=== PATIENT | male | born 1990 | race Caucasian/White ===

== ENCOUNTER 2017-04-14 02:01 | Emergency (ER) | payer OTHER ==
[~2017-04-14] VITALS: Ht 188 cm; Wt 81.6 kg
--- NOTE | 2017-04-14 02:40 | NUR ---
PT PRESENTED TO THE ER WITH A C/O SI WITH A PLAN TO WALK INTO TRAFFIC. PT STATED THAT HE IS ALSO HEARING VOICES. URINE SAMPLE OBTAINED AND BLOOD DRAWN, SENT TO LAB.
[2017-04-14 02:44] LABS: BASOPHILS # (AUTO) 0.1 /CMM (0.0-0.2); BASOPHILS % (AUTO) 0.9 % (0.0-2.0); EOSINOPHILS # (AUTO) 0.4 /CMM (0.0-0.7); EOSINOPHILS % (AUTO) 7.1 % (0.0-6.0); HEMATOCRIT 44 % (39-51); HEMOGLOBIN 14.4 g/dL (13.5-17.5); LYMPHOCYTES # (AUTO) 1.7 /CMM (0.8-4.8); LYMPHOCYTES % (AUTO) 29.1 % (20.0-44.0); MEAN CORPUSCULAR HEMOGLOBIN 27 PG (26.0-33.0); MEAN CORPUSCULAR HGB CONC 33 g/dl (31.0-36.0); MEAN CORPUSCULAR VOLUME 81 fL (80-96); MONOCYTES # (AUTO) 0.8 /CMM (0.1-1.30); MONOCYTES % (AUTO) 13.5 % (2.0-12.0); NEUTROPHILS # (AUTO) 2.9 /CMM (1.8-8.9); NEUTROPHILS % (AUTO) 49.4 % (43.0-81.0); PLATELET COUNT (AUTO) 284 /CMM (150-450); RDW COEFFICIENT OF VARIATION 13.9 (11.5-15.0); RED BLOOD CELL COUNT(AUTO) 5.38 MIL/uL (4.5-6.0); WHITE BLOOD COUNT (AUTO) 5.9 K/uL (4.3-11.0)
[2017-04-14 02:47] LABS: APPEARANCE,URINE CLEAR (CLEAR); BILIRUBIN,URINE 1+ (NEGATIVE); BLOOD, URINE NEGATIVE Ery/uL (NEGATIVE); COLOR,URINE YELLOW (YELLOW); KETONES,URINE NEGATIVE (NEGATIVE); LEUKOCYTE ESTERASE ,URINE TRACE (NEGATIVE); NITRITE, URINE NEGATIVE (NEGATIVE); PROTEIN,URINE TRACE mg/dl (NEGATIVE); UGLUCOSE NEGATIVE (NEGATIVE); UROBILINOGEN,URINE 0.2 EU/dL (0.2)
--- NOTE | 2017-04-14 02:50 | NUR ---
PT SEEN BY Anali LATIF LCSW.
[2017-04-14 02:53] LABS: RBC,URINE 0-2 /HPF (0-2)
[2017-04-14 02:54] LABS: BACTERIA,URINE None seen /HPF (None Seen); MUCUS,URINE Few /LPF (None Seen); SQUAMOUS EPITHELIAL CELL,UR Few /HPF (None Seen); WBC,URINE 21-50 /HPF (0-3)
[2017-04-14 02:55] LABS: CALCIUM, SERUM 9.4 mg/dL (8.5-10.1); CARBON DIOXIDE 31 mmol/L (21-32); CHLORIDE 103 mmol/L (98-107); CREATININE 1.3 mg/dL (0.6-1.3); GLUCOSE 80 mg/dL (74-106); POTASSIUM 3.6 mmol/L (3.5-5.1); SODIUM SERUM 139 mmol/L (136-145); UREA NITROGEN, BLOOD 19 mg/dL (7-18)
[2017-04-14 03:00] LABS: ALANINE AMINOTRANSFERASE 28 U/L (12-78); ALBUMIN 4.4 g/dL (3.4-5.0); ALKALINE PHOSPHATASE 45 U/L (46-116); ASPARTATE AMINOTRANSFERASE 33 U/L (15-37); BILIRUBIN,DIRECT 0.1 mg/dL (0.0-0.2); BILIRUBIN,TOTAL 0.7 mg/dL (0.2-1.0); TOTAL PROTEIN, SERUM 8.5 g/dL (6.4-8.2)
[2017-04-14 03:01] LABS: ACETAMINOPHEN 0 ug/ml (10-30); ALCOHOL, BLOOD < 3 mg/dL (0-0); SALICYLATE 1.3 mg/dL (2.8-20.0)
--- NOTE | 2017-04-14 03:15 | NUR ---
PT APPEARS TO BE SLEEPING SOUNDLY WITH NO S/S OF PAIN OR DISTRESS.
--- NOTE | 2017-04-14 04:24 | NUR ---
Pt accepted at [facility] by Dr Lama. # for report [phone]
--- NOTE | 2017-04-14 04:25 | NUR ---
PT APPEARS TO BE RESTING COMFORTABLY WITH NO S/S OF DISTRESS. RESP EVEN AND UNLABORED. WILL CONTINUE TO MONITOR THE PT.
--- NOTE | 2017-04-14 04:27 | NUR ---
CALLING REPORT TO CUCO BASS AT [facility].
--- NOTE | 2017-04-14 04:45 | NUR ---
Patient discharged to THE LOBBY TO WAIT FOR TAXI TO [facility] [place] in stable condition. Written and verbal after care instructions given. Patient verbalizes understanding of instruction. PT AMBULATED TO THE LOBBY WITH A STEADY GAIT. NO S/S OF DISTRESS NOTED. Rivas RUIZ RN/CHG ESCORTED PT TO THE LOBBY TO WAIT FOR TAXI AND TAXI VOUCHER WAS GIVEN TO THE WEAVING SUPERVISOR. PT IS AWARE THAT [facility] IS WAITING FOR HIM. VSS.
[2017-04-14 04:47] VITALS: BP 138/90
== END 2017-04-14 04:47 | disposition home or self-care (01) ==
LOC: ER 02:02
DX: R45.851 Suicidal ideations (principal); F32.9 Major depressive disorder, single episode, unspecified; F41.9 Anxiety disorder, unspecified; F43.10 Post-traumatic stress disorder, unspecified; F22 Delusional disorders; F25.9 Schizoaffective disorder, unspecified; J45.909 Unspecified asthma, uncomplicated; R82.99 Other abnormal findings in urine; Z91.013 Allergy to seafood
CPT/HCPCS: 36415; 80048; 80076; 80305; 80329; 81001; 85025; 87086; 99284; A4606; G0480 ×2; Z7610; 81000-TC; G6039-TC

== ENCOUNTER 2017-04-23 01:55 | Emergency (ER) | payer OTHER ==
[~2017-04-23] VITALS: Ht 182.9 cm; Wt 81.6 kg
--- NOTE | 2017-04-23 02:18 | NUR ---
PT BIBSELF, AMBULATORY TO ER BED 12 PT STATES HE WANTS TO SMASH HIS HEAD TO MAKE THE VOICES STOP AND TO KILL HIMSELF, PT DENIES HI. PT STATES NO PLANS AT THIS TIME. PT AOX4 RR EVEN AND UNLABORED. NO SOB NOTED. NAD NOTED. NO NVD AT THIS TIME. PT NOT DIAPHORETIC. PT PLACED ON MONITOR WAITING FOR MD VELÁZQUEZ. PT CALM AND COOPERATIVE AT THIS TIME.
--- NOTE | 2017-04-23 02:19 | NUR ---
URINE COLLECTED. CALLED LAB FOR WINE FERMENTER.
--- NOTE | 2017-04-23 02:30 | NUR ---
DR. PARDO AT BEDSIDE FOR EVAL.
[2017-04-23] MEDS ORDERED: OLANZAPINE 5 MG/TAB.RAPDIS PO ONE (03:00)
[2017-04-23] MEDS ORDERED: QUETIAPINE FUMARATE 100 MG TABLET PO SCH (03:00)
[2017-04-23] MEDS ORDERED: OLANZAPINE 5 MG/TAB.RAPDIS ONE (03:03)
[2017-04-23] MEDS ORDERED: QUETIAPINE FUMARATE 100 MG TABLET ONE (03:07)
--- NOTE | 2017-04-23 03:11 | NUR ---
LAB AT BEDSIDE FOR BLOOD DRAW.
--- NOTE | 2017-04-23 03:14 | NUR ---
RECEIVED MEDICATION VIA RN DREW MAYO
[2017-04-23 03:26] LABS: BILIRUBIN,URINE NEGATIVE (NEGATIVE); BLOOD, URINE NEGATIVE Ery/uL (NEGATIVE); KETONES,URINE TRACE (NEGATIVE); LEUKOCYTE ESTERASE ,URINE NEGATIVE (NEGATIVE); NITRITE, URINE NEGATIVE (NEGATIVE); PH,URINE 5.5 (5.0-8.0); PROTEIN,URINE TRACE mg/dl (NEGATIVE); UGLUCOSE NEGATIVE (NEGATIVE); UROBILINOGEN,URINE 0.2 EU/dL (0.2)
[2017-04-23 03:29] LABS: APPEARANCE,URINE HAZY (CLEAR); COLOR,URINE DARK YELLOW (YELLOW)
[2017-04-23 03:35] LABS: CALCIUM, SERUM 9.4 mg/dL (8.5-10.1); CARBON DIOXIDE 32 mmol/L (21-32); CHLORIDE 101 mmol/L (98-107); GLUCOSE 85 mg/dL (74-106); POTASSIUM 3.7 mmol/L (3.5-5.1); SODIUM SERUM 138 mmol/L (136-145); UREA NITROGEN, BLOOD 16 mg/dL (7-18)
[2017-04-23 03:36] LABS: BACTERIA,URINE None seen /HPF (None Seen); RBC,URINE 0-2 /HPF (0-2); SQUAMOUS EPITHELIAL CELL,UR Few /HPF (None Seen)
[2017-04-23 03:38] LABS: HEMATOCRIT 39 % (39-51); HEMOGLOBIN 13.4 g/dL (13.5-17.5); MEAN CORPUSCULAR HEMOGLOBIN 28 PG (26.0-33.0); MEAN CORPUSCULAR HGB CONC 34 g/dl (31.0-36.0); MEAN CORPUSCULAR VOLUME 81 fL (80-96); RDW COEFFICIENT OF VARIATION 13.4 (11.5-15.0); RED BLOOD CELL COUNT(AUTO) 4.86 MIL/uL (4.5-6.0); WHITE BLOOD COUNT (AUTO) 5.2 K/uL (4.3-11.0)
[2017-04-23 03:39] LABS: BASOPHILS # (AUTO) 0.1 /CMM (0.0-0.2); BASOPHILS % (AUTO) 1.2 % (0.0-2.0); EOSINOPHILS # (AUTO) 0.4 /CMM (0.0-0.7); EOSINOPHILS % (AUTO) 8.5 % (0.0-6.0); LYMPHOCYTES # (AUTO) 2.1 /CMM (0.8-4.8); LYMPHOCYTES % (AUTO) 40.2 % (20.0-44.0); MONOCYTES # (AUTO) 0.5 /CMM (0.1-1.30); MONOCYTES % (AUTO) 10.1 % (2.0-12.0); NEUTROPHILS # (AUTO) 2.1 /CMM (1.8-8.9); PLATELET COUNT (AUTO) 298 /CMM (150-450)
[2017-04-23 03:40] LABS: ALANINE AMINOTRANSFERASE 27 U/L (12-78); ALCOHOL, BLOOD < 3 mg/dL (0-0); ALKALINE PHOSPHATASE 45 U/L (46-116); ASPARTATE AMINOTRANSFERASE 26 U/L (15-37); BILIRUBIN,DIRECT 0.2 mg/dL (0.0-0.2); BILIRUBIN,TOTAL 0.8 mg/dL (0.2-1.0); TOTAL PROTEIN, SERUM 7.7 g/dL (6.4-8.2)
[2017-04-23 03:43] LABS: ACETAMINOPHEN 0 ug/ml (10-30); SALICYLATE 1.3 mg/dL (2.8-20.0)
--- NOTE | 2017-04-23 04:05 | NUR ---
Patient is resting comfortably in bed with eyes closed. Easily aroused. VSS
--- NOTE | 2017-04-23 04:21 | NUR ---
pt denies hearing voices at this time. denies si/hi. dr. reed made aware.
--- NOTE | 2017-04-23 04:23 | NUR ---
DR. PARDO AT BEDSIDE FOR EVAL.
--- NOTE | 2017-04-23 04:28 | NUR ---
SPOKE TO PT, PT DENIES HI HOWEVER ADMITS TO WANTING TO HURT HIMSELF, NO PLANS AT THIS TIME. DR. PARDO MADE AWARE.
--- NOTE | 2017-04-23 06:16 | NUR ---
ART AT BEDSIDE FOR EVAL.
--- NOTE | 2017-04-23 07:41 | NUR ---
REPORT GIVEN TO CUCO CANO FOR [facility]
--- NOTE | 2017-04-23 07:52 | NUR ---
Patient discharged to home in stable condition. Written and verbal after care instructions given. Patient verbalizes understanding of instruction. ambulatory with a steady gait
[2017-04-23 07:53] VITALS: BP 110/68
== END 2017-04-23 07:54 | disposition home or self-care (01) ==
LOC: ER 01:55
DX: R45.851 Suicidal ideations (principal); F32.9 Major depressive disorder, single episode, unspecified; F43.10 Post-traumatic stress disorder, unspecified; J45.909 Unspecified asthma, uncomplicated; F25.9 Schizoaffective disorder, unspecified; F22 Delusional disorders; Z91.013 Allergy to seafood; F17.200 Nicotine dependence, unspecified, uncomplicated; Z59.0 Homelessness; Z91.19 Patient's noncompliance with other medical treatment and regimen
CPT/HCPCS: 36415; 80048-TC; 80076-TC; 80305; 81000-TC; 85025-TC; A4606; G0480; Z7610

== ENCOUNTER 2017-06-19 05:59 | Emergency (ER) | payer OTHER ==
[~2017-06-19] VITALS: Ht 182.9 cm; Wt 89.4 kg
--- NOTE | 2017-06-19 06:25 | NUR ---
BB SELF, PT STATES "I FEEL CONFUSED AND ANXIOUS SINCE YESTERDAY" PT AOX3 RR EVEN AND UNLABORED. NO SOB NOTED. NAD NOTED. NO NVD AT THIS TIME. PT NOT DIAPHORETIC. PT DENIES SI/HI/ PT WAITING FOR MD VELÁZQUEZ.
--- NOTE | 2017-06-19 06:33 | NUR ---
JANEEN RUDOLPH AT BEDSIDE FOR EVAL.
--- NOTE | 2017-06-19 06:44 | NUR ---
DR EISENBERG AT BEDSIDE.
[2017-06-19] MEDS ORDERED: LORAZEPAM 1 MG TABLET ONE (06:51)
--- NOTE | 2017-06-19 06:56 | NUR ---
CALLED LAB FOR SPECIMEN STEM ROLLER OR CRUSHER OPERATOR/ FOR BLOOD DRAW.
[2017-06-19] MEDS ORDERED: LORAZEPAM 1 MG TABLET PO ONE (07:00)
--- NOTE | 2017-06-19 07:02 | NUR ---
CALLED [facility], SPOKE WITH INTAKE. THEY SAID TO FAX OVER A FACESHEET WITH LABWORK SAYING HE IS MEDICALLY CLEAR AND THEY SHOULD HAVE A BED FOR PATIENT. MD EISENBERG NOTIFIED
--- NOTE | 2017-06-19 07:09 | NUR ---
LAB AT BEDSIDE FOR BLOOD DRAW.
--- NOTE | 2017-06-19 07:13 | NUR ---
REPORT GIVEN TO CUCO HEREDIA FOR TOMÁS.
[2017-06-19 07:21] LABS: BASOPHILS # (AUTO) 0.1 /CMM (0.0-0.2); BASOPHILS % (AUTO) 0.8 % (0.0-2.0); EOSINOPHILS # (AUTO) 0.1 /CMM (0.0-0.7); EOSINOPHILS % (AUTO) 1.6 % (0.0-6.0); HEMATOCRIT 39 % (39-51); HEMOGLOBIN 13.2 g/dL (13.5-17.5); LYMPHOCYTES # (AUTO) 1.9 /CMM (0.8-4.8); LYMPHOCYTES % (AUTO) 23.1 % (20.0-44.0); MEAN CORPUSCULAR HEMOGLOBIN 27 PG (26.0-33.0); MEAN CORPUSCULAR HGB CONC 34 g/dl (31.0-36.0); MEAN CORPUSCULAR VOLUME 81 fL (80-96); MONOCYTES % (AUTO) 12.4 % (2.0-12.0); NEUTROPHILS % (AUTO) 62.1 % (43.0-81.0); PLATELET COUNT (AUTO) 301 /CMM (150-450); RDW COEFFICIENT OF VARIATION 14.4 (11.5-15.0); RED BLOOD CELL COUNT(AUTO) 4.84 MIL/uL (4.5-6.0)
--- NOTE | 2017-06-19 07:25 | NUR ---
REPORT GIVEN TO CUCO SHAFFER FOR TOMÁS.
[2017-06-19 07:27] LABS: APPEARANCE,URINE CLEAR (CLEAR); BILIRUBIN,URINE NEGATIVE (NEGATIVE); BLOOD, URINE NEGATIVE Ery/uL (NEGATIVE); COLOR,URINE YELLOW (YELLOW); KETONES,URINE 2+ (NEGATIVE); LEUKOCYTE ESTERASE ,URINE TRACE (NEGATIVE); NITRITE, URINE NEGATIVE (NEGATIVE); PH,URINE 6.5 (5.0-8.0); PROTEIN,URINE TRACE mg/dl (NEGATIVE); UGLUCOSE NEGATIVE (NEGATIVE); UROBILINOGEN,URINE 0.2 EU/dL (0.2)
[2017-06-19 07:33] LABS: BACTERIA,URINE Rare /HPF (None Seen); HYALINE CASTS, URINE Moderate /LPF (None Seen); MUCUS,URINE Many /LPF (None Seen); RBC,URINE NONE SEEN /HPF (0-2); SQUAMOUS EPITHELIAL CELL,UR None Seen /HPF (None Seen)
[2017-06-19 07:39] LABS: ALANINE AMINOTRANSFERASE 29 U/L (12-78); ALBUMIN 4.3 g/dL (3.4-5.0); ALKALINE PHOSPHATASE 48 U/L (46-116); ASPARTATE AMINOTRANSFERASE 34 U/L (15-37); BILIRUBIN,DIRECT 0.2 mg/dL (0.0-0.2); BILIRUBIN,TOTAL 0.9 mg/dL (0.2-1.0); CALCIUM, SERUM 9.1 mg/dL (8.5-10.1); CARBON DIOXIDE 28 mmol/L (21-32); CHLORIDE 101 mmol/L (98-107); CREATININE 1.2 mg/dL (0.6-1.3); GLUCOSE 87 mg/dL (74-106); POTASSIUM 3.3 mmol/L (3.5-5.1); SODIUM SERUM 138 mmol/L (136-145); TOTAL PROTEIN, SERUM 8.3 g/dL (6.4-8.2); UREA NITROGEN, BLOOD 20 mg/dL (7-18)
[2017-06-19 07:42] LABS: SALICYLATE 1.1 mg/dL (2.8-20.0)
[2017-06-19 07:43] LABS: ACETAMINOPHEN < 10 ug/ml (10-30); ALCOHOL, BLOOD < 3 mg/dL (0-0)
--- NOTE | 2017-06-19 09:11 | NUR ---
Patient discharged to [facility] in stable condition via ambulance/[facility]. Written and verbal after care instructions given. Patient verbalizes understanding of instruction.
[2017-06-19 09:12] VITALS: BP 135/100
== END 2017-06-19 09:14 | disposition home or self-care (01) ==
LOC: ER 05:59
DX: F15.10 Other stimulant abuse, uncomplicated (principal); F32.9 Major depressive disorder, single episode, unspecified; F43.10 Post-traumatic stress disorder, unspecified; J45.909 Unspecified asthma, uncomplicated; Z02.89 Encounter for other administrative examinations; Z59.0 Homelessness; F17.200 Nicotine dependence, unspecified, uncomplicated; Z91.013 Allergy to seafood
CPT/HCPCS: 36415; 80048-TC; 80076-TC; 80305; 81000-TC; 85025-TC; 87086-TC; A4606; G0480; Z7610

== ENCOUNTER 2017-08-09 07:19 | Emergency (ER) | payer OTHER ==
[~2017-08-09] VITALS: Ht 188 cm; Wt 86.2 kg
--- NOTE | 2017-08-09 07:40 | NUR ---
PT CAME IN FOR MEDICAL CLEARANCE FOR VOLUNTARY ADM TO [facility]. NAD NOTED. VSS. SAFETY AND COMFORT MEASURES PROVIDED. WILL MONITOR.
--- NOTE | 2017-08-09 08:05 | NUR ---
IV ACCESS STARTED. BLOOD DRAWN FOR LABS. MEDICATED ORDERED.
[2017-08-09 08:29] LABS: BASOPHILS % (AUTO) 0.7 % (0.0-2.0); EOSINOPHILS # (AUTO) 0.4 /CMM (0.0-0.7); EOSINOPHILS % (AUTO) 6.3 % (0.0-6.0); HEMATOCRIT 45 % (39-51); HEMOGLOBIN 14.9 g/dL (13.5-17.5); LYMPHOCYTES # (AUTO) 1.8 /CMM (0.8-4.8); LYMPHOCYTES % (AUTO) 26.9 % (20.0-44.0); MEAN CORPUSCULAR HEMOGLOBIN 27 PG (26.0-33.0); MEAN CORPUSCULAR HGB CONC 33 g/dl (31.0-36.0); MEAN CORPUSCULAR VOLUME 83 fL (80-96); MONOCYTES # (AUTO) 0.7 /CMM (0.1-1.30); MONOCYTES % (AUTO) 10.2 % (2.0-12.0); NEUTROPHILS # (AUTO) 3.6 /CMM (1.8-8.9); NEUTROPHILS % (AUTO) 55.9 % (43.0-81.0); PLATELET COUNT (AUTO) 285 /CMM (150-450); RDW COEFFICIENT OF VARIATION 14.2 (11.5-15.0); RED BLOOD CELL COUNT(AUTO) 5.49 MIL/uL (4.5-6.0); WHITE BLOOD COUNT (AUTO) 6.5 K/uL (4.3-11.0)
[2017-08-09 08:52] LABS: CALCIUM, SERUM 9.2 mg/dL (8.5-10.1); CARBON DIOXIDE 29 mmol/L (21-32); CHLORIDE 103 mmol/L (98-107); CREATININE 1.2 mg/dL (0.6-1.3); GLUCOSE 100 mg/dL (74-106); SODIUM SERUM 140 mmol/L (136-145); UREA NITROGEN, BLOOD 13 mg/dL (7-18)
[2017-08-09 08:56] LABS: ACETAMINOPHEN < 2 ug/ml (10-30); ALANINE AMINOTRANSFERASE 24 U/L (12-78); ALBUMIN 4.4 g/dL (3.4-5.0); ALCOHOL, BLOOD < 3 mg/dL (0-0); ALKALINE PHOSPHATASE 52 U/L (46-116); ASPARTATE AMINOTRANSFERASE 25 U/L (15-37); BILIRUBIN,DIRECT 0.2 mg/dL (0.0-0.2); BILIRUBIN,TOTAL 0.9 mg/dL (0.2-1.0); SALICYLATE 0.5 mg/dL (2.8-20.0); TOTAL PROTEIN, SERUM 8.2 g/dL (6.4-8.2)
[2017-08-09 09:53] LABS: APPEARANCE,URINE SL CLOUDY (CLEAR); BILIRUBIN,URINE 1+ (NEGATIVE); BLOOD, URINE NEGATIVE Ery/uL (NEGATIVE); COLOR,URINE DARK YELLO (YELLOW); KETONES,URINE NEGATIVE (NEGATIVE); LEUKOCYTE ESTERASE ,URINE NEGATIVE (NEGATIVE); NITRITE, URINE NEGATIVE (NEGATIVE); PROTEIN,URINE 1+ mg/dl (NEGATIVE); UGLUCOSE NEGATIVE (NEGATIVE); UROBILINOGEN,URINE 0.2 EU/dL (0.2)
[2017-08-09 10:14] LABS: BACTERIA,URINE Few /HPF (None Seen); RBC,URINE NONE SEEN /HPF (0-2); SQUAMOUS EPITHELIAL CELL,UR Few /HPF (None Seen); WBC,URINE 0-2 /HPF (0-3)
[2017-08-09 11:10] VITALS: BP 141/88
--- NOTE | 2017-08-09 11:30 | NUR ---
IV removed. Catheter intact and site benign. Pressure and 4x4 applied to site. No bleeding noted.
--- NOTE | 2017-08-09 11:40 | NUR ---
DR MOREIRA ACCEPTING PATIENT AT [facility]. THEY ARE READY TO ACCEPT
--- NOTE | 2017-08-09 12:14 | NUR ---
Patient discharged in stable condition. Written and verbal after care instructions given. Patient verbalizes understanding of instruction. Pt insists on walking to [facility] and ambulance offered. Charge nurse aware, Photograph Editor aware.
== END 2017-08-09 12:28 ==
LOC: ER 07:26
DX: F32.9 Major depressive disorder, single episode, unspecified (principal); R45.851 Suicidal ideations; F43.10 Post-traumatic stress disorder, unspecified; J45.909 Unspecified asthma, uncomplicated; F20.0 Paranoid schizophrenia; F41.9 Anxiety disorder, unspecified; F17.200 Nicotine dependence, unspecified, uncomplicated; Z59.0 Homelessness; Z91.013 Allergy to seafood
CPT/HCPCS: 36415; 80048-TC; 80076-TC; 80305; 81000-TC; 85025-TC; A4606; G0480; Z7610

== ENCOUNTER 2017-09-23 06:07 | Emergency (ER) | payer OTHER ==
[~2017-09-23] VITALS: Ht 182.9 cm; Wt 77.1 kg
[2017-09-23 06:56] LABS: APPEARANCE,URINE CLEAR (CLEAR); BILIRUBIN,URINE 1+ (NEGATIVE); BLOOD, URINE NEGATIVE Ery/uL (NEGATIVE); COLOR,URINE YELLOW (YELLOW); KETONES,URINE NEGATIVE (NEGATIVE); LEUKOCYTE ESTERASE ,URINE NEGATIVE (NEGATIVE); NITRITE, URINE NEGATIVE (NEGATIVE); PH,URINE 6.5 (5.0-8.0); PROTEIN,URINE TRACE mg/dl (NEGATIVE); UGLUCOSE NEGATIVE (NEGATIVE); UROBILINOGEN,URINE 0.2 EU/dL (0.2)
[2017-09-23 06:58] LABS: BASOPHILS % (AUTO) 0.6 % (0.0-2.0); EOSINOPHILS # (AUTO) 0.4 /CMM (0.0-0.7); EOSINOPHILS % (AUTO) 7.8 % (0.0-6.0); HEMATOCRIT 43 % (39-51); HEMOGLOBIN 14.2 g/dL (13.5-17.5); LYMPHOCYTES # (AUTO) 1.8 /CMM (0.8-4.8); LYMPHOCYTES % (AUTO) 32.6 % (20.0-44.0); MEAN CORPUSCULAR HEMOGLOBIN 27 PG (26.0-33.0); MEAN CORPUSCULAR HGB CONC 33 g/dl (31.0-36.0); MEAN CORPUSCULAR VOLUME 82 fL (80-96); MONOCYTES # (AUTO) 0.6 /CMM (0.1-1.30); MONOCYTES % (AUTO) 11.3 % (2.0-12.0); NEUTROPHILS # (AUTO) 2.6 /CMM (1.8-8.9); NEUTROPHILS % (AUTO) 47.7 % (43.0-81.0); PLATELET COUNT (AUTO) 248 /CMM (150-450); RDW COEFFICIENT OF VARIATION 14.2 (11.5-15.0); WHITE BLOOD COUNT (AUTO) 5.6 K/uL (4.3-11.0)
[2017-09-23 07:03] LABS: BACTERIA,URINE Rare /HPF (None Seen); RBC,URINE 0-2 /HPF (0-2); SQUAMOUS EPITHELIAL CELL,UR Rare /HPF (None Seen)
[2017-09-23 07:12] LABS: CALCIUM, SERUM 9.9 mg/dL (8.5-10.1); CARBON DIOXIDE 32 mmol/L (21-32); CHLORIDE 101 mmol/L (98-107); CREATININE 1.2 mg/dL (0.6-1.3); GLUCOSE 92 mg/dL (74-106); POTASSIUM 3.7 mmol/L (3.5-5.1); SODIUM SERUM 138 mmol/L (136-145); UREA NITROGEN, BLOOD 14 mg/dL (7-18)
[2017-09-23 07:16] LABS: ALANINE AMINOTRANSFERASE 30 U/L (12-78); ALBUMIN 4.3 g/dL (3.4-5.0); ALCOHOL, BLOOD < 3 mg/dL (0-0); ALKALINE PHOSPHATASE 45 U/L (46-116); ASPARTATE AMINOTRANSFERASE 36 U/L (15-37); BILIRUBIN,DIRECT 0.1 mg/dL (0.0-0.2); BILIRUBIN,TOTAL 0.7 mg/dL (0.2-1.0)
[2017-09-23 07:19] LABS: ACETAMINOPHEN 0 ug/ml (10-30); SALICYLATE 1.5 mg/dL (2.8-20.0)
--- NOTE | 2017-09-23 07:31 | NUR ---
CALLED MARY FOR PET TEAM EVAL
[2017-09-23 13:41] VITALS: BP 121/67
--- NOTE | 2017-09-23 14:01 | NUR ---
PT IS ACCEPTED AT [facility]. NUMBER FOR REPORT IS [phone] SPEAK TO SURINDER.
--- NOTE | 2017-09-23 15:15 | NUR ---
CALLED SALAZAR AT [facility] SHE SAID PT GOING TO [place]
--- NOTE | 2017-09-23 15:16 | NUR ---
CALLED BENNY KELLY HE SAID PT SUPPOSED TO GO TO [place]
--- NOTE | 2017-09-23 16:52 | NUR ---
GAVE REPORT TO VALERIE NORWOOD [facility]
== END 2017-09-23 16:04 ==
LOC: ER 06:22
DX: R45.851 Suicidal ideations (principal); R44.0 Auditory hallucinations; F20.9 Schizophrenia, unspecified; J45.909 Unspecified asthma, uncomplicated; F43.10 Post-traumatic stress disorder, unspecified; F25.9 Schizoaffective disorder, unspecified; F32.9 Major depressive disorder, single episode, unspecified; F17.210 Nicotine dependence, cigarettes, uncomplicated; F41.9 Anxiety disorder, unspecified; Z91.013 Allergy to seafood; Z59.0 Homelessness
CPT/HCPCS: 36415; 80048; 80076; 80305; 80329; 81001; 85025; 99285; 99406; A4606; G0480 ×2; Z7610; 81000-TC

== ENCOUNTER 2017-10-08 15:25 | Emergency (ER) | payer OTHER ==
[~2017-10-08] VITALS: Ht 182.9 cm; Wt 86.2 kg
[2017-10-08 15:27] VITALS: BP 149/96
--- NOTE | 2017-10-08 15:27 | NUR ---
PT AMBULATORY TO ER BED 12. C/O SI NO SPECIFIC PLAN AT THIS TIME. FEELING DEPRESSED SINCE YESTERDAY. PT DENIES ETOH AND DRUG USE. PT IS VERBALLY RESPONSIVE. STABLE VITALS. AWAITNG MD VELÁZQUEZ.
--- NOTE | 2017-10-08 15:46 | NUR ---
DR MATHEW AT BEDSIDE FOR EVAL.
[2017-10-08 15:58] LABS: BASOPHILS # (AUTO) 0.1 /CMM (0.0-0.2); BASOPHILS % (AUTO) 0.9 % (0.0-2.0); EOSINOPHILS # (AUTO) 0.2 /CMM (0.0-0.7); EOSINOPHILS % (AUTO) 2.2 % (0.0-6.0); HEMATOCRIT 45 % (39-51); HEMOGLOBIN 14.7 g/dL (13.5-17.5); LYMPHOCYTES # (AUTO) 1.9 /CMM (0.8-4.8); LYMPHOCYTES % (AUTO) 27.3 % (20.0-44.0); MEAN CORPUSCULAR HEMOGLOBIN 27 PG (26.0-33.0); MEAN CORPUSCULAR HGB CONC 33 g/dl (31.0-36.0); MEAN CORPUSCULAR VOLUME 81 fL (80-96); MONOCYTES # (AUTO) 0.6 /CMM (0.1-1.30); MONOCYTES % (AUTO) 9.1 % (2.0-12.0); NEUTROPHILS % (AUTO) 60.5 % (43.0-81.0); PLATELET COUNT (AUTO) 321 /CMM (150-450); RDW COEFFICIENT OF VARIATION 13.4 (11.5-15.0); RED BLOOD CELL COUNT(AUTO) 5.55 MIL/uL (4.5-6.0); WHITE BLOOD COUNT (AUTO) 6.8 K/uL (4.3-11.0)
[2017-10-08 15:59] LABS: APPEARANCE,URINE Clear (CLEAR); BILIRUBIN,URINE SMALL (NEGATIVE); BLOOD, URINE Negative Ery/uL (NEGATIVE); COLOR,URINE Dark (YELLOW); KETONES,URINE Negative (NEGATIVE); LEUKOCYTE ESTERASE ,URINE Negative (NEGATIVE); NITRITE, URINE Negative (NEGATIVE); PROTEIN,URINE 30 mg/dl (NEGATIVE); UGLUCOSE Negative (NEGATIVE); UROBILINOGEN,URINE 0.2 EU/dL (0.2)
[2017-10-08 16:12] LABS: CALCIUM, SERUM 9.6 mg/dL (8.5-10.1); CARBON DIOXIDE 29 mmol/L (21-32); CHLORIDE 103 mmol/L (98-107); CREATININE 1.3 mg/dL (0.6-1.3); GLUCOSE 91 mg/dL (74-106); SODIUM SERUM 140 mmol/L (136-145); UREA NITROGEN, BLOOD 18 mg/dL (7-18)
[2017-10-08 16:13] LABS: BACTERIA,URINE Rare /HPF (None Seen); RBC,URINE NONE SEEN /HPF (0-2); SQUAMOUS EPITHELIAL CELL,UR Few /HPF (None Seen); WBC,URINE NONE SEEN /HPF (0-3)
[2017-10-08 16:18] LABS: ALANINE AMINOTRANSFERASE 21 U/L (12-78); ALBUMIN 4.6 g/dL (3.4-5.0); ALCOHOL, BLOOD < 3 mg/dL (0-0); ALKALINE PHOSPHATASE 48 U/L (46-116); ASPARTATE AMINOTRANSFERASE 24 U/L (15-37); BILIRUBIN,DIRECT 0.1 mg/dL (0.0-0.2); BILIRUBIN,TOTAL 0.7 mg/dL (0.2-1.0); TOTAL PROTEIN, SERUM 8.5 g/dL (6.4-8.2)
[2017-10-08 16:20] LABS: ACETAMINOPHEN < 2 ug/ml (10-30); SALICYLATE 0.9 mg/dL (2.8-20.0)
--- NOTE | 2017-10-08 16:23 | NUR ---
TRACII AT BEDSIDE FOR PSYCH EVAL.
--- NOTE | 2017-10-08 18:52 | NUR ---
PT TRANSFERED TO [facility]. STABLE CONDITION.
== END 2017-10-08 19:07 ==
LOC: ER 15:26
DX: R45.851 Suicidal ideations (principal); F15.10 Other stimulant abuse, uncomplicated; F12.10 Cannabis abuse, uncomplicated; R79.89 Other specified abnormal findings of blood chemistry; F32.9 Major depressive disorder, single episode, unspecified; F43.10 Post-traumatic stress disorder, unspecified; J45.909 Unspecified asthma, uncomplicated; F17.200 Nicotine dependence, unspecified, uncomplicated; Z91.013 Allergy to seafood; Z59.0 Homelessness; Z91.14 Patient's other noncompliance with medication regimen
CPT/HCPCS: 36415; 80048; 80076; 80305; 80329; 81001; 85025; 99285; A4606; G0480 ×2; Z7610; 81000-TC

== ENCOUNTER 2017-10-29 06:00 | Emergency (ER) | payer OTHER ==
[~2017-10-29] VITALS: Ht 188 cm; Wt 72.6 kg
--- NOTE | 2017-10-29 06:16 | NUR ---
PT AMBULATORY TO ER BED 8. PT BIB SELF, C/O SI. WANTS TO HARM SELF BY OVERDOSING. VSS/RESP EVEN UNLABORED/NAD NOTED. AWAITING MD VELÁZQUEZ.
[2017-10-29 06:45] LABS: BASOPHILS % (AUTO) 0.2 % (0.0-2.0); EOSINOPHILS # (AUTO) 0.1 /CMM (0.0-0.7); EOSINOPHILS % (AUTO) 1.2 % (0.0-6.0); HEMATOCRIT 45 % (39-51); HEMOGLOBIN 14.6 g/dL (13.5-17.5); LYMPHOCYTES # (AUTO) 1.3 /CMM (0.8-4.8); LYMPHOCYTES % (AUTO) 13.9 % (20.0-44.0); MEAN CORPUSCULAR HEMOGLOBIN 26 PG (26.0-33.0); MEAN CORPUSCULAR HGB CONC 33 g/dl (31.0-36.0); MEAN CORPUSCULAR VOLUME 81 fL (80-96); MONOCYTES # (AUTO) 0.9 /CMM (0.1-1.30); MONOCYTES % (AUTO) 9.8 % (2.0-12.0); NEUTROPHILS # (AUTO) 6.9 /CMM (1.8-8.9); NEUTROPHILS % (AUTO) 74.9 % (43.0-81.0); PLATELET COUNT (AUTO) 315 /CMM (150-450); RDW COEFFICIENT OF VARIATION 13.9 (11.5-15.0); RED BLOOD CELL COUNT(AUTO) 5.53 MIL/uL (4.5-6.0); WHITE BLOOD COUNT (AUTO) 9.2 K/uL (4.3-11.0)
[2017-10-29 06:59] LABS: CALCIUM, SERUM 9.6 mg/dL (8.5-10.1); CARBON DIOXIDE 29 mmol/L (21-32); CHLORIDE 100 mmol/L (98-107); CREATININE 1.3 mg/dL (0.6-1.3); GLUCOSE 104 mg/dL (74-106); POTASSIUM 4.1 mmol/L (3.5-5.1); SODIUM SERUM 139 mmol/L (136-145); UREA NITROGEN, BLOOD 23 mg/dL (7-18)
[2017-10-29 07:02] LABS: ALCOHOL, BLOOD < 3 mg/dL (0-0)
--- NOTE | 2017-10-29 08:04 | NUR ---
QUEENIE RASMUSSEN RN FOR PSYCH EVAL ETA 1HR
--- NOTE | 2017-10-29 11:20 | NUR ---
PT WAS CLEARED BY GRADY NORWOOD. MD RENAE AWARE
[2017-10-29 11:57] VITALS: BP 132/80
== END 2017-10-29 11:58 | disposition home or self-care (01) ==
LOC: ER 06:03
DX: R45.851 Suicidal ideations (principal); F32.9 Major depressive disorder, single episode, unspecified; Z91.14 Patient's other noncompliance with medication regimen; F25.9 Schizoaffective disorder, unspecified; F43.10 Post-traumatic stress disorder, unspecified; J45.909 Unspecified asthma, uncomplicated; F17.200 Nicotine dependence, unspecified, uncomplicated; Z91.013 Allergy to seafood; Z59.0 Homelessness
CPT/HCPCS: 36415; 80048; 80305; 85025; 99284; A4606; G0480; Z7610

== ENCOUNTER 2017-12-17 06:50 | Emergency (ER) | payer OTHER ==
[~2017-12-17] VITALS: Ht 188 cm; Wt 81.6 kg
--- NOTE | 2017-12-17 07:07 | NUR ---
AAOX3, BB SELF FROM STREETS "I NEED MED CLEARANCE FOR [facility]". "I HAVE DELUSIONS, DEPRESSION MORE THAN USUAL". RR IS EVEN AND UNLABORED WITH NAD NOTED. SKIN IS WARM AND NON DIAPHORETIC. AWAITING MD FOR EVAL.
[2017-12-17] MEDS ORDERED: buPROPion 75 MG TABLET PO ONE (07:30)
[2017-12-17 07:43] LABS: BASOPHILS % (AUTO) 0.3 % (0.0-2.0); EOSINOPHILS # (AUTO) 0.3 /CMM (0.0-0.7); EOSINOPHILS % (AUTO) 4.3 % (0.0-6.0); HEMATOCRIT 47 % (39-51); HEMOGLOBIN 15.7 g/dL (13.5-17.5); LYMPHOCYTES # (AUTO) 1.7 /CMM (0.8-4.8); LYMPHOCYTES % (AUTO) 27.5 % (20.0-44.0); MEAN CORPUSCULAR HEMOGLOBIN 27 PG (26.0-33.0); MEAN CORPUSCULAR HGB CONC 34 g/dl (31.0-36.0); MEAN CORPUSCULAR VOLUME 81 fL (80-96); MONOCYTES # (AUTO) 0.3 /CMM (0.1-1.30); MONOCYTES % (AUTO) 5.6 % (2.0-12.0); NEUTROPHILS # (AUTO) 3.8 /CMM (1.8-8.9); NEUTROPHILS % (AUTO) 62.3 % (43.0-81.0); PLATELET COUNT (AUTO) 288 /CMM (150-450); RDW COEFFICIENT OF VARIATION 14.6 (11.5-15.0); RED BLOOD CELL COUNT(AUTO) 5.78 MIL/uL (4.5-6.0); WHITE BLOOD COUNT (AUTO) 6.1 K/uL (4.3-11.0)
[2017-12-17 07:48] LABS: APPEARANCE,URINE CLEAR (CLEAR); BILIRUBIN,URINE NEGATIVE (NEGATIVE); BLOOD, URINE NEGATIVE Ery/uL (NEGATIVE); COLOR,URINE YELLOW (YELLOW); KETONES,URINE 1+ (NEGATIVE); LEUKOCYTE ESTERASE ,URINE NEGATIVE (NEGATIVE); NITRITE, URINE NEGATIVE (NEGATIVE); PROTEIN,URINE TRACE mg/dl (NEGATIVE); UGLUCOSE NEGATIVE (NEGATIVE); UROBILINOGEN,URINE 0.2 EU/dL (0.2)
[2017-12-17 08:06] LABS: BACTERIA,URINE Few /HPF (None Seen); MUCUS,URINE Moderate /LPF (None Seen); RBC,URINE 0-2 /HPF (0-2); SQUAMOUS EPITHELIAL CELL,UR Moderate /HPF (None Seen)
[2017-12-17 08:07] LABS: ALANINE AMINOTRANSFERASE 29 U/L (12-78); ALBUMIN 4.7 g/dL (3.4-5.0); ALKALINE PHOSPHATASE 50 U/L (46-116); ASPARTATE AMINOTRANSFERASE 27 U/L (15-37); BILIRUBIN,DIRECT 0.2 mg/dL (0.0-0.2); BILIRUBIN,TOTAL 0.8 mg/dL (0.2-1.0); CALCIUM, SERUM 9.7 mg/dL (8.5-10.1); CARBON DIOXIDE 26 mmol/L (21-32); CHLORIDE 104 mmol/L (98-107); CREATININE 1.2 mg/dL (0.6-1.3); GLUCOSE 69 mg/dL (74-106); POTASSIUM 3.9 mmol/L (3.5-5.1); SODIUM SERUM 142 mmol/L (136-145); TOTAL PROTEIN, SERUM 9.2 g/dL (6.4-8.2); UREA NITROGEN, BLOOD 20 mg/dL (7-18)
[2017-12-17 08:09] LABS: ACETAMINOPHEN 0 ug/ml (10-30); ALCOHOL, BLOOD < 3 mg/dL (0-0)
--- NOTE | 2017-12-17 08:45 | NUR ---
Patient is resting comfortably in bed with eyes closed. Easily aroused. VSS
[2017-12-17] MEDS ORDERED: QUETIAPINE FUMARATE 100 MG TABLET PO SCH (09:00)
--- NOTE | 2017-12-17 09:30 | NUR ---
VY RN AT BS FOR PSYCH EVAL.
--- NOTE | 2017-12-17 11:15 | NUR ---
Patient is resting comfortably in bed with eyes closed. Easily aroused. VSS
--- NOTE | 2017-12-17 12:25 | NUR ---
SPOKE WITH CUCO MCCLELLAN ON THE PHONE. VY INSTRUCTED ME TO TRANSPORT THE PATIENT TO [facility].
--- NOTE | 2017-12-17 13:10 | NUR ---
Patient discharged to home in stable condition. Written and verbal after care instructions given. Patient verbalizes understanding of instruction. CALLED A CAB GOING TO [facility].
[2017-12-17 13:15] VITALS: BP 147/86
== END 2017-12-17 13:27 ==
LOC: ER 06:54
DX: Z04.6 Encounter for general psychiatric examination, requested by authority (principal); F15.10 Other stimulant abuse, uncomplicated; F12.10 Cannabis abuse, uncomplicated; F32.9 Major depressive disorder, single episode, unspecified; F20.9 Schizophrenia, unspecified; J45.909 Unspecified asthma, uncomplicated; F43.10 Post-traumatic stress disorder, unspecified; F41.9 Anxiety disorder, unspecified; F17.200 Nicotine dependence, unspecified, uncomplicated; Z59.0 Homelessness; Z91.013 Allergy to seafood
CPT/HCPCS: 36415; 80048; 80076; 80305; 80329; 81001; 85025; 99285; A4606; G0480 ×2; Z7610; 81000-TC